=== PATIENT | female | born 1945 | race Caucasian/White ===

== ENCOUNTER → 2016-06-18 | Outpatient (CLI) | payer MEDICARE, OTHER ==
[~2016-06-18] MED LIST: ACET-1770 PO; ACET-62 PO; FENO67CA PO; HYDR-4009 PO; HYDR25TA PO; SENN1TAB36 PO; WARF3TAB6 PO; WARF4TAB6 PO
--- NOTE | 2016-06-18 15:15 | DI ---
EXAM: LUMBAR SPINE COMP W/O BEND DATE: 06/18/2016 12:00 AM ENCOUNTER: Initial INDICATION: ITS.REASON: M54.5 LOW BACK PAIN COMPARISON: None available. TECHNIQUE: 5 views of the lumbar spine were obtained. FINDINGS: Five non rib-bearing lumbar type vertebrae are identified. Generalized osteopenia. Mild chronic appearing height loss of the superior endplate of L2 likely secondary to a broad-based Schmorl's node deformity. The vertebral bodies are otherwise normal in height and alignment without evidence of acute fracture or significant spondylolisthesis. No pars defects appreciated on the oblique radiographs. Multilevel degenerative disc disease and facet arthropathy. 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 The visualized bowel gas pattern is unremarkable. Cholelithiasis incidentally noted. IMPRESSION: 1. Mild chronic appearing height loss of the superior endplate of L2 likely secondary to a broad-based Schmorl's node deformity. If however there is history of recent injury and concern for acute fracture, MRI could be obtained for further evaluation. 2. Multilevel degenerative spondylosis. MRI could also be obtained for evaluation of neural foraminal and spinal canal patency as clinically indicated. 3. 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 4. Cholelithiasis. .
== END ==
LOC: IMA 14:37
PROVIDERS: ATTEND Family Medicine
DX: M51.36 Other intervertebral disc degeneration, lumbar region (principal)